=== PATIENT | male | born 1960 | race Caucasian/White ===

== ENCOUNTER 2022-02-26 09:12 | Outpatient (REF) | payer SELFPAY ==
--- NOTE | ~2022-02-26 | XR_ITS ---
EXAMINATION: KNEE X-RAY CLINICAL INFORMATION: Pain COMPARISON: None TECHNIQUE: Standing AP view of both knees and lateral and sunrise view of the left knee FINDINGS: Left: Bone alignment is normal. No fracture or dislocation is seen. There is joint space narrowing at the medial femoral tibial joint. There are small osteophytes at the patellofemoral joint. There is a small joint effusion. There is soft tissue thickening over the inferior patella and patellar tendon. Standing AP view of the right knee is unremarkable. XR/XR knee LT 2V IMPRESSION: Left knee: Mild degenerative changes and soft tissue thickening over the inferior patella and patellar tendon. Unremarkable AP view of the right knee.
--- NOTE | ~2022-02-26 | XR_ITS ---
EXAMINATION: KNEE X-RAY CLINICAL INFORMATION: Pain COMPARISON: None TECHNIQUE: Standing AP view of both knees and lateral and sunrise view of the left knee FINDINGS: Left: Bone alignment is normal. No fracture or dislocation is seen. There is joint space narrowing at the medial femoral tibial joint. There are small osteophytes at the patellofemoral joint. There is a small joint effusion. There is soft tissue thickening over the inferior patella and patellar tendon. Standing AP view of the right knee is unremarkable. XR/XR knee standing BI IMPRESSION: Left knee: Mild degenerative changes and soft tissue thickening over the inferior patella and patellar tendon. Unremarkable AP view of the right knee.
== END 2022-02-26 09:13 | disposition home or self-care (01) ==
LOC: HO.HOSX 09:12
PROVIDERS: Visit Provider Orthopaedic Surgery
DX: M17.12 Unilateral primary osteoarthritis, left knee (principal)
CPT/HCPCS: 20610; 73560; 73565; J1100

== ENCOUNTER 2022-09-21 10:23 | Outpatient (REF) | payer OTHER, SELFPAY | END 2022-09-21 10:24 | disposition home or self-care (01) | LOC: HO.HOSX 10:23 | PROVIDERS: Visit Provider Orthopaedic Surgery | DX: Z13.89 Encounter for screening for other disorder (principal) ==

== ENCOUNTER 2023-08-19 11:07 | Outpatient (AMB) | payer OTHER, SELFPAY ==
--- NOTE | 2023-08-19 11:08 | MHC.OFFVIS ---
Intake Vital Signs 08/19/23 11:11 Height 5 ft 6 in Weight 175 lb BMI 28.2 Intake Visit Reasons: Newprob-B/L shoulder pain Intake Note: Navi is a 62 year old right hand dominant male who presents today for a new problem visit with complaints of bilateral shoulder pain . Patient reports that he has had ongoing shoulder pain for quite some time now. Left shoulder is worse than the right. His shoulders are painful al the time takes occasional aleve with relief. He was seen about 2 years ago with complaints of left knee pain, he received a left knee injection on 02/26/2022. this injection was helpful. he would like to repeat injection today HPI Newprob-B/L shoulder pain HPI Details Navi is a 62 year old man who presents with complaints of bilateral shoulder & left knee pain. He complains of shoulder pain, which he describes as constant, and worse with activity. He says his pain is worse in his left shoulder, and he finds some relief from NSAIDs. He also complains of left knee OA pain. He was last seen, and injected, on 02/26/22. He found this injection helpful and he would like to repeat today. 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 Review of Systems Const All systems reviewed & are unremarkable except as noted in HPI and below Physical Exam Vital Signs: BMI result Body Mass Index 28.2 Const General: no acute distress, alert and awake Orientation/consciousness: patient oriented x3 HEENT Head: Yes normocephalic and Yes atraumatic Eyes EOM: EOMs intact bilaterally Resp Effort & Inspection: normal respiratory effort and able to speak in complete sentences Cardio Jugular venous distension: no JVD Skin General skin exam: turgor normal Rashes: no rashes Neuro General: patient oriented x3 Extrem Other: crepitus and scapular recruitment with abduction ER limited bilaterally to 15 deg Left knee with medial joint line ttp Psych Appearance: grossly normal Affect: normal affect Attitude: cooperative Office Procedures Joint Inj/Aspir; Non-Pain Clin Joint Injection/Drain Details: Injected 1 mL of Decadron and 3 mL 1% lidocaine and 3 mL of 0.25% Marcaine. Site was prepped using aseptic technique. Patient tolerated the procedure well. Approach Used: anterolateral Shoulders, Hips, Knees, Knee Large Joint Injection 60252: Left Knee Coding Procedure code (CPT) selection complete Joint Injection/Drain Joint Injection/Drain Details: Injected 1 mL of Decadron and 3 mL 1% lidocaine and 3 mL of 0.25% Marcaine. Site was prepped using aseptic technique. Patient tolerated the procedure well. Primary Site: right shoulder Secondary Site: left shoulder Approach Used: posterolateral Coding - Large joint 62012 - Glenohumeral/Tronchanteric Bursa/Intraarticular Procedure code (CPT) selection complete Assessment & Plan Assessment & Plan (1) Rotator cuff tear arthropathy of both shoulders: Code(s): M75.101 - Unspecified rotator cuff tear or rupture of right shoulder, not specified as traumatic; M12.811 - Other specific arthropathies, not elsewhere classified, right shoulder; M12.812 - Other specific arthropathies, not elsewhere classified, left shoulder; M75.102 - Unspecified rotator cuff tear or rupture of left shoulder, not specified as traumatic Plan: Functional with pain. Injected bilateral shoulders (2) Primary localized osteoarthritis of left knee: Code(s): M17.12 - Unilateral primary osteoarthritis, left knee Plan: Injected left knee. can use global regulatory lead as tolerated Plan Prepared for Sai Lyons MD by Damian Andrade, certified medical aide, on 08/19/23 at 11:17 AM, EST. Coding Level of Care Code Est Pt Level 3 (37955) Diagnoses Rotator cuff tear arthropathy of both shoulders M75.101; M12.811; M12.812; M75.102 Primary localized osteoarthritis of left knee M17.12 CPT Codes Shoulders, Hips, Knees, - Knee Large Joint Injection : Left Knee ([id number]) Coding - 11102 Large joint: 20519 - Large joint ([id number]) Coding - Joint 7: - Glenohumeral/Tronchanteric Bursa/Intraarticular ([id number])
[2023-08-19 11:11] VITALS: BMI 28.2
== END 2023-08-19 11:42 | disposition home or self-care (01) ==
PROVIDERS: Visit Provider Orthopaedic Surgery
DX: M75.101 Unspecified rotator cuff tear or rupture of right shoulder, not specified as traumatic (principal); M12.811 Other specific arthropathies, not elsewhere classified, right shoulder; M12.812 Other specific arthropathies, not elsewhere classified, left shoulder; M75.102 Unspecified rotator cuff tear or rupture of left shoulder, not specified as traumatic; M17.12 Unilateral primary osteoarthritis, left knee
CPT/HCPCS: 20610; 99213

== ENCOUNTER → 2023-08-19 11:07 | Outpatient (BNVA) | payer OTHER, SELFPAY | PROVIDERS: Visit Provider Orthopaedic Surgery | DX: M75.101 Unspecified rotator cuff tear or rupture of right shoulder, not specified as traumatic (principal); M12.811 Other specific arthropathies, not elsewhere classified, right shoulder; M75.102 Unspecified rotator cuff tear or rupture of left shoulder, not specified as traumatic; M12.812 Other specific arthropathies, not elsewhere classified, left shoulder; M17.12 Unilateral primary osteoarthritis, left knee | CPT/HCPCS: 20610; J0665; J1100 ==

== ENCOUNTER 2023-10-28 12:12 | Outpatient (REF) | payer OTHER, SELFPAY ==
--- NOTE | ~2023-10-28 | XR_ITS ---
EXAMINATION: XR shoulder RT min 2V, XR shoulder LT min 2V CLINICAL INFORMATION: Reason for Exam M25.519 - Pain in unspecified shoulder COMPARISON: None. TECHNIQUE: AP, lateral, and oblique views of the bilateral shoulders FINDINGS: * Right shoulder: No acute fracture or dislocation. Severe degenerative changes of the right shoulder joint with joint space narrowing and large humeral head osteophytosis. * Left shoulder: No acute fracture or dislocation. Severe degenerative changes of the left shoulder joint with joint space narrowing and large humeral head osteophytosis. * No soft tissue abnormality. XR/XR shoulder LT min 2V IMPRESSION: Severe degenerative changes of the bilateral shoulders. No acute fracture or dislocation.
--- NOTE | ~2023-10-28 | XR_ITS ---
EXAMINATION: XR shoulder RT min 2V, XR shoulder LT min 2V CLINICAL INFORMATION: Reason for Exam M25.519 - Pain in unspecified shoulder COMPARISON: None. TECHNIQUE: AP, lateral, and oblique views of the bilateral shoulders FINDINGS: * Right shoulder: No acute fracture or dislocation. Severe degenerative changes of the right shoulder joint with joint space narrowing and large humeral head osteophytosis. * Left shoulder: No acute fracture or dislocation. Severe degenerative changes of the left shoulder joint with joint space narrowing and large humeral head osteophytosis. * No soft tissue abnormality. XR/XR shoulder RT min 2V IMPRESSION: Severe degenerative changes of the bilateral shoulders. No acute fracture or dislocation.
== END 2023-10-28 12:13 | disposition home or self-care (01) ==
LOC: HO.HOSX 12:12
PROVIDERS: Visit Provider Orthopaedic Surgery
DX: M17.12 Unilateral primary osteoarthritis, left knee (principal); M19.011 Primary osteoarthritis, right shoulder; M19.012 Primary osteoarthritis, left shoulder
CPT/HCPCS: 20610; 73030; J0665; J1100

== ENCOUNTER 2023-10-28 12:12 | Outpatient (AMB) | payer OTHER, SELFPAY ==
--- NOTE | 2023-10-28 12:14 | MHC.OFFVIS ---
Intake Intake Visit Reasons: ov- b/L shoulder pain Intake Note: Navi is a 62 year old right hand dominant male who presents today for a follow up of his bilateral shoulder and left knee pain. At his last visit on 08/19/23 these sites were injected . Patient reports mild relief and would like to repeat today Allergies No Known Allergies Allergy (Verified 10/28/23 12:17) HPI ov- b/L shoulder pain HPI Details Navi is a 63-year-old gentleman with bilateral shoulder and left knee pain. He has known left knee osteoarthritis. He describes relief from injections the last 1 was several months ago. With respect to his shoulders he denies injury. 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 He states pain at the end of the day and with extended reaching/lifting/overhead activity. 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 Physical Exam Const General: cooperative, healthy appearing, no acute distress and well groomed Orientation/consciousness: oriented to person and oriented to place HEENT Head: Yes normal to inspection, Yes normocephalic and Yes atraumatic Eyes General: appearance normal, both eyes and all related structures Alignment and Position: alignment normal Conjunctivae: conjunctivae normal EOM: EOMs intact bilaterally Neck Neck: Yes normal visual inspection and Yes trachea midline Resp Other: No rerpiratory distress Effort & Inspection: normal respiratory effort and able to speak in complete sentences GI Other: No abdominal distension Back/Spine/Pelvis Cervical Spine: normal cervical lordosis and cervical ROM normal Skin General skin exam: no rashes or lesions noted Neuro General: oriented to person, oriented to place and gait normal Extrem Other: There is limited external rotation of both upper extremities with active abduction to 70 degrees and forward flexion to 90 with scapular recruitment. Negative empty can. Left knee with varus malalignment and medial joint line tenderness to palpation. Office Procedures Joint Injection/Drain Joint Injection/Drain Details: Injected 1 mL of Decadron and 3 mL 1% lidocaine and 3 mL of 0.25% Marcaine. Site was prepped using aseptic technique. Patient tolerated the procedure well. Primary Site: right shoulder Secondary Site: left shoulder Approach Used: posterolateral Coding Details: Injected 1 mL of Decadron and 3 mL 1% lidocaine and 3 mL of 0.25% Marcaine. Site was prepped using aseptic technique. Patient tolerated the procedure well. 06306 - Large joint 42175 - Glenohumeral/Tronchanteric Bursa/Intraarticular Additional procedure code (CPT) needed Joint Injection/Drain Joint Injection/Drain Details: Injected 1 mL of Decadron and 3 mL 1% lidocaine and 3 mL of 0.25% Marcaine. Site was prepped using aseptic technique. Patient tolerated the procedure well. Primary Site: left knee Approach Used: anterolateral Coding 64231 - Large joint Procedure code (CPT) selection complete Results Reviewed Results Reviewed: I personally reviewed relevant radiographs. Bilateral varus knee alignment with moderate medial compartment joint space loss on the left and mild on the right Severe glenohumeral osteoarthritis bilateral shoulders Assessment & Plan Assessment & Plan (1) Primary localized osteoarthritis of left knee: Code(s): M17.12 - Unilateral primary osteoarthritis, left knee Plan: I injected left knee today. Should he worsen we can consider gel/PRP/unloading brace. (2) Osteoarthritis of shoulders, bilateral: Code(s): M19.011 - Primary osteoarthritis, right shoulder; M19.012 - Primary osteoarthritis, left shoulder Plan: I injected both glenohumeral joints today. I discussed treatment options. At this point continue activity as tolerated and I would avoid exacerbating overhead lifting. Orders: Orders XR shoulder RT min 2V 10/28/23 M25.519 - Pain in unspecified shoulder XR shoulder LT min 2V 10/28/23 M25.519 - Pain in unspecified shoulder Coding Level of Care Code Est Pt Level 4 (55812) Diagnoses Primary localized osteoarthritis of left knee M17.12 Osteoarthritis of shoulders, bilateral M19.011; M19.012 CPT Codes Coding - 40441 Large joint: 29227 - Large joint ([id number]) Coding - Joint 7: 50482 - Glenohumeral/Tronchanteric Bursa/Intraarticular ([id number]) Coding - 87330 Large joint: 19350 - Large joint ([id number])
== END 2023-10-28 13:06 | disposition home or self-care (01) ==
PROVIDERS: Visit Provider Orthopaedic Surgery
DX: M17.12 Unilateral primary osteoarthritis, left knee (principal); M19.011 Primary osteoarthritis, right shoulder; M19.012 Primary osteoarthritis, left shoulder
CPT/HCPCS: 20610; 99214